=== PATIENT | male | born 1950 | race Caucasian/White ===

== ENCOUNTER 2021-06-24 05:20 | Emergency (ER) | payer OTHER, MEDICARE ==
[~2021-06-24] VITALS: Ht 182.9 cm; Wt 105.2 kg
[2021-06-24] MEDS ORDERED: KETOROLAC TROMETHAMINE 30 MG/ML VIAL IV STA (05:39)
[2021-06-24] MEDS ORDERED: SODIUM CHLORIDE 0.9% 1000ML 1,000 ML IV STA (05:39)
[2021-06-24] MEDS ORDERED: DIPHENHYDRAMINE HCL INJ 50 MG/ML VIAL IV STA (05:39)
[2021-06-24] MEDS ORDERED: METOCLOPRAMIDE HCL 10 MG/2ML VIAL IV STA (05:39)
[2021-06-24] MEDS ORDERED: METHYLPREDNISOLONE SOD SUCC 125 MG/2ML VIAL IV STA (05:39)
[2021-06-24] MEDS ORDERED: DIPHENHYDRAMINE HCL INJ 50 MG/ML VIAL ONE (06:04)
[2021-06-24] MEDS ORDERED: METOCLOPRAMIDE HCL 10 MG/2ML VIAL ONE (06:04)
[2021-06-24] MEDS ORDERED: METHYLPREDNISOLONE SOD SUCC 125 MG/2ML VIAL ONE (06:05)
[2021-06-24] MEDS ORDERED: SODIUM CHLORIDE 0.9% 1000ML 1,000 ML ONE (06:05)
[2021-06-24] MEDS ORDERED: KETOROLAC TROMETHAMINE 30 MG/ML VIAL ONE (06:05)
[2021-06-24] MEDS ORDERED: FAMOTIDINE 20 MG/2 ML VIAL IV STA (06:34)
[2021-06-24] MEDS ORDERED: Morphine 4mg Syringe 4 MG/ML INJ IV STA (06:34)
[2021-06-24] MEDS ORDERED: ONDANSETRON HCL INJ 2MG/ML 2ML 2 MG/ML VIAL IV STA (06:34)
[2021-06-24] MEDS ORDERED: FAMOTIDINE20 MG PO (07:18)
[2021-06-24] MEDS ORDERED: ESGIC 50-325-41 EACH PO (07:18)
[2021-06-24] MEDS ORDERED: ONDANSETRON ODT4 MG PO (07:18)
[2021-06-24] MEDS ORDERED: MAALOX MAXIMUM355 ML PO (07:18)
== END 2021-06-24 07:31 | disposition home or self-care (01) ==
LOC: FSED 05:38
DX: R11.2 Nausea with vomiting, unspecified (principal); K52.9 Noninfective gastroenteritis and colitis, unspecified; E11.65 Type 2 diabetes mellitus with hyperglycemia; R51.9 Headache, unspecified; E78.5 Hyperlipidemia, unspecified; Z20.822 Contact with and (suspected) exposure to COVID-19
CPT/HCPCS: 70450; 80048; 85025; 87400; 96374; 96375; 96376; 99283; J1200; J1885; J2270; J2405; J2765; J2930; J7030; U0002